=== PATIENT | female | born 1990 | race Caucasian/White ===

== ENCOUNTER → 2023-09-08 | Outpatient (CLI) | payer OTHER | END | disposition home or self-care (01) | LOC: LAB SHORT 17:31 → LAB 17:31 | DX: N39.0 Urinary tract infection, site not specified (principal) | CPT/HCPCS: 87086 ==

== ENCOUNTER → 2023-11-12 | Outpatient (CLI) | payer OTHER ==
[2023-11-12 14:43] LABS: Source, Urine Voided
[2023-11-12 15:03] LABS: BASOPHILS ABSOLUTE AUTO 0.06 K/mm3 (0.00-0.23); BASOPHILS PERCENT AUTO 1 % (0-2); EOSINOPHILS ABSOLUTE AUTO 0.14 K/mm3 (0.00-0.68); EOSINOPHILS PERCENT AUTO 2 % (0-6); Hematocrit 35.3 % (33.0-51.0); Hemoglobin 11.3 g/dL (11.5-16.0); IMMATURE GRAN ABSOLUTE AUTO 0.03 K/mm3 (0.00-0.10); IMMATURE GRAN PERCENT AUTO 0 % (0-1); LYMPHOCYTES ABSOLUTE AUTO 1.86 K/mm3 (0.84-5.20); LYMPHOCYTES PERCENT AUTO 20 % (21-46); MONOCYTES ABSOLUTE AUTO 0.62 K/mm3 (0.16-1.47); MONOCYTES PERCENT AUTO 7 % (4-13); Mean Corpuscular HGB 25.2 pg (26.0-34.0); Mean Corpuscular Volume 79 fL (80-100); Mean Platelet Volume 10.4 fL (9.1-12.4); NEUTROPHILS ABSOLUTE AUTO 6.48 K/mm3 (1.96-9.15); NEUTROPHILS PERCENT AUTO 71 % (41-73); Platelet Count 398 K/mm3 (150-400); RDW Coefficient Variation 15.4 % (11.7-14.2); RDW Standard Deviation 43.8 fL (35.1-46.3); Red Blood Cell Count 4.49 M/mm3 (3.80-5.20); White Blood Cell Count 9.19 K/mm3 (4.00-11.30)
[2023-11-12 15:13] LABS: Protein/Creat Ratio, Ur Random 0.1
[2023-11-12 15:22] LABS: Thyroid Stimulating Hormone 0.145 uIU/mL (0.360-4.800)
[2023-11-12 16:02] LABS: U Amphetamine Screen Not Detected; U Barbituate Screen Not Detected; U Benzodiazapine Screen Not Detected; U Buprenorphine Screen Not Detected; U Cannabinoids Screen Not Detected; U Cocaine Screen Not Detected; U Methadone Screen Not Detected; U Methamphetamine Screen Not Detected; U Opiates Screen Not Detected; U Oxycodone Screen Not Detected; U Phencyclidine Screen Not Detected
[2023-11-12 16:08] LABS: Amorphous Heavy (0-Heavy); Bacteria Few /hpf; Red Blood Cells, Urine 0-2 /hpf (0-2); Squamous Epithelial Cells Few /hpf (Few); White Blood Cells, Urine 0-2 /hpf (0-5)
[2023-11-13 10:01] LABS: A/G RATIO 1.1 (1.2-2.2); BILIRUBIN, TOTAL 0.4 mg/dL (0.0-1.2); CALCIUM, SERUM 9.4 mg/dL (8.7-10.2); CREATININE, SERUM 0.56 mg/dL (0.57-1.00); GLOBULIN, TOTAL 3.6 g/dL (1.5-4.5); PROTEIN, TOTAL, SERUM 7.7 g/dL (6.0-8.5)
[2023-11-14 11:13] LABS: HEPATITIS B SURFACE ANTIGEN Negative (Negative)
[2023-11-14 15:40] LABS: HIV 1,2 COMBO ANTIGEN/ANTIBODY Negative (Negative)
[2023-11-14 16:27] LABS: HEPATITIS C AB CIA INTERP Negative (Negative)
[2023-11-15 18:51] LABS: Triiodothyronine, Free 3.48 pg/mL (2.18-3.98)
== END ==
LOC: LAB SHORT 13:21 → LAB 13:21
PROVIDERS: Advanced Practice Midwife
DX: O09.91 Supervision of high risk pregnancy, unspecified, first trimester (principal)
CPT/HCPCS: 80053; 81015; 82570; 84156; 84439; 84443; 84481; 85025; 86592; 86762; 86803; 86850; 86900; 86901; 87086; 87340; 87389

== ENCOUNTER → 2024-03-02 | Outpatient (CLI) | payer OTHER ==
[2024-03-02 14:45] LABS: BASOPHILS ABSOLUTE AUTO 0.05 K/mm3 (0.00-0.23); BASOPHILS PERCENT AUTO 1 % (0-2); EOSINOPHILS ABSOLUTE AUTO 0.25 K/mm3 (0.00-0.68); EOSINOPHILS PERCENT AUTO 3 % (0-6); Hematocrit 35.9 % (33.0-51.0); Hemoglobin 11.4 g/dL (11.5-16.0); IMMATURE GRAN ABSOLUTE AUTO 0.03 K/mm3 (0.00-0.10); IMMATURE GRAN PERCENT AUTO 0 % (0-1); LYMPHOCYTES ABSOLUTE AUTO 1.43 K/mm3 (0.84-5.20); LYMPHOCYTES PERCENT AUTO 15 % (21-46); MONOCYTES ABSOLUTE AUTO 0.68 K/mm3 (0.16-1.47); MONOCYTES PERCENT AUTO 7 % (4-13); Mean Corpuscular HGB 27.5 pg (26.0-34.0); Mean Corpuscular HGB Conc 31.8 g/dL (31.5-36.5); Mean Corpuscular Volume 87 fL (80-100); Mean Platelet Volume 10.5 fL (9.1-12.4); NEUTROPHILS ABSOLUTE AUTO 7.23 K/mm3 (1.96-9.15); NEUTROPHILS PERCENT AUTO 75 % (41-73); Platelet Count 344 K/mm3 (150-400); RDW Coefficient Variation 18.5 % (11.7-14.2); RDW Standard Deviation 58.7 fL (35.1-46.3); Red Blood Cell Count 4.15 M/mm3 (3.80-5.20); White Blood Cell Count 9.67 K/mm3 (4.00-11.30)
== END ==
LOC: LAB SHORT 10:48 → LAB 10:48
PROVIDERS: Obstetrics & Gynecology
DX: O09.522 Supervision of elderly multigravida, second trimester (principal); Z3A.00 Weeks of gestation of pregnancy not specified
CPT/HCPCS: 82950; 85025

== ENCOUNTER 2024-04-14 17:43 | Emergency (ER) | payer OTHER ==
[~2024-04-14] VITALS: Ht 162.6 cm; Wt 93.0 kg
[2024-04-14 17:48] VITALS: BP 156/114
[2024-04-14] MEDS ORDERED: LABE200 PO (17:52)
[2024-04-14] MEDS ORDERED: ESCI20 PO (17:52)
[2024-04-14] MEDS ORDERED: FERROUS SULFAT325 M3 PO (17:52)
[2024-04-14] MEDS ORDERED: PROAIR RESPICL90 MCG IH (17:52)
[2024-04-14] MEDS ORDERED: ASPIR 8181 M1 PO (19:59)
== END 2024-04-14 18:15 | disposition other institution (70) ==
LOC: ER 17:43
DX: O9A.213 Injury, poisoning and certain other consequences of external causes complicating pregnancy, third trimester (principal); S30.1XXA Contusion of abdominal wall, initial encounter; V89.2XXA Person injured in unspecified motor-vehicle accident, traffic, initial encounter; Z3A.35 35 weeks gestation of pregnancy; Z79.899 Other long term (current) drug therapy
CPT/HCPCS: 99284

== ENCOUNTER 2024-04-14 18:25 | Observation (INO) | payer OTHER ==
[~2024-04-14] VITALS: Ht 162.6 cm; Wt 92.3 kg
[2024-04-14] VITALS (9 sets, daily range): BP systolic 129–149; BP diastolic 79–102
[~2024-04-14 18:25] MED LIST: ESCI20 PO; FERROUS SULFAT325 M3 PO; LABE200 PO; PROAIR RESPICL90 MCG IH
[2024-04-14] MEDS ORDERED: Rho(D) Immune Globulin 300 MCG / SYR IM ONE (18:35)
[2024-04-14 18:56] LABS: BASOPHILS ABSOLUTE AUTO 0.03 K/mm3 (0.00-0.23); BASOPHILS PERCENT AUTO 0 % (0-2); EOSINOPHILS PERCENT AUTO 1 % (0-6); Hematocrit 35.8 % (33.0-51.0); Hemoglobin 11.9 g/dL (11.5-16.0); IMMATURE GRAN ABSOLUTE AUTO 0.06 K/mm3 (0.00-0.10); IMMATURE GRAN PERCENT AUTO 1 % (0-1); LYMPHOCYTES ABSOLUTE AUTO 1.46 K/mm3 (0.84-5.20); LYMPHOCYTES PERCENT AUTO 15 % (21-46); MONOCYTES ABSOLUTE AUTO 0.67 K/mm3 (0.16-1.47); MONOCYTES PERCENT AUTO 7 % (4-13); Mean Corpuscular HGB 28.5 pg (26.0-34.0); Mean Corpuscular HGB Conc 33.2 g/dL (31.5-36.5); Mean Corpuscular Volume 86 fL (80-100); Mean Platelet Volume 10.5 fL (9.1-12.4); NEUTROPHILS ABSOLUTE AUTO 7.21 K/mm3 (1.96-9.15); NEUTROPHILS PERCENT AUTO 76 % (41-73); Platelet Count 281 K/mm3 (150-400); RDW Coefficient Variation 16.5 % (11.7-14.2); RDW Standard Deviation 52.8 fL (35.1-46.3); Red Blood Cell Count 4.17 M/mm3 (3.80-5.20); White Blood Cell Count 9.53 K/mm3 (4.00-11.30)
[2024-04-14 19:21] LABS: International Normalized Ratio 1.02; Prothrombin Time Results 10.9 Sec (9.7-11.5)
[2024-04-14] MEDS ORDERED: Lactated Ringer's 1,000 ML IV ONE (19:22)
[2024-04-14] MEDS ORDERED: Acetaminophen 500 MG Tab PO PRN (19:25)
[2024-04-14] MEDS ORDERED: Lactated Ringer's 1,000 ML IV SCH (19:30)
[2024-04-14] MEDS ORDERED: ASPIR 8181 M1 PO (19:59)
[2024-04-14] MEDS ORDERED: Labetalol HCL 100 MG TAB PO ONE (21:00)
[2024-04-14 23:36] LABS: BASOPHILS ABSOLUTE AUTO 0.04 K/mm3 (0.00-0.23); BASOPHILS PERCENT AUTO 0 % (0-2); EOSINOPHILS ABSOLUTE AUTO 0.09 K/mm3 (0.00-0.68); EOSINOPHILS PERCENT AUTO 1 % (0-6); Hematocrit 32.7 % (33.0-51.0); IMMATURE GRAN ABSOLUTE AUTO 0.06 K/mm3 (0.00-0.10); IMMATURE GRAN PERCENT AUTO 1 % (0-1); LYMPHOCYTES ABSOLUTE AUTO 1.17 K/mm3 (0.84-5.20); LYMPHOCYTES PERCENT AUTO 9 % (21-46); MONOCYTES ABSOLUTE AUTO 0.91 K/mm3 (0.16-1.47); MONOCYTES PERCENT AUTO 7 % (4-13); Mean Corpuscular HGB Conc 33.6 g/dL (31.5-36.5); Mean Corpuscular Volume 86 fL (80-100); Mean Platelet Volume 10.2 fL (9.1-12.4); NEUTROPHILS ABSOLUTE AUTO 10.99 K/mm3 (1.96-9.15); NEUTROPHILS PERCENT AUTO 83 % (41-73); Platelet Count 230 K/mm3 (150-400); RDW Coefficient Variation 16.5 % (11.7-14.2); RDW Standard Deviation 52.2 fL (35.1-46.3); Red Blood Cell Count 3.79 M/mm3 (3.80-5.20); White Blood Cell Count 13.26 K/mm3 (4.00-11.30)
[2024-04-15] VITALS (9 sets, daily range): BP systolic 124–145; BP diastolic 76–88
[2024-04-15] MEDS ORDERED: DiphenhydrAMINE HCL 25 MG Cap PO ONE (00:10)
[2024-04-15] MEDS ORDERED: DiphenhydrAMINE HCL 25 MG Cap PO PRN (00:10)
[2024-04-15 00:14] LABS: International Normalized Ratio 1.03
[2024-04-15 06:19] LABS: BASOPHILS ABSOLUTE AUTO 0.03 K/mm3 (0.00-0.23); BASOPHILS PERCENT AUTO 0 % (0-2); EOSINOPHILS PERCENT AUTO 1 % (0-6); Hematocrit 32.2 % (33.0-51.0); Hemoglobin 10.4 g/dL (11.5-16.0); IMMATURE GRAN ABSOLUTE AUTO 0.03 K/mm3 (0.00-0.10); IMMATURE GRAN PERCENT AUTO 0 % (0-1); LYMPHOCYTES ABSOLUTE AUTO 1.31 K/mm3 (0.84-5.20); LYMPHOCYTES PERCENT AUTO 13 % (21-46); MONOCYTES PERCENT AUTO 7 % (4-13); Mean Corpuscular HGB Conc 32.3 g/dL (31.5-36.5); Mean Corpuscular Volume 87 fL (80-100); Mean Platelet Volume 10.4 fL (9.1-12.4); NEUTROPHILS ABSOLUTE AUTO 7.68 K/mm3 (1.96-9.15); NEUTROPHILS PERCENT AUTO 78 % (41-73); Platelet Count 232 K/mm3 (150-400); RDW Coefficient Variation 16.6 % (11.7-14.2); RDW Standard Deviation 52.8 fL (35.1-46.3); Red Blood Cell Count 3.72 M/mm3 (3.80-5.20); White Blood Cell Count 9.85 K/mm3 (4.00-11.30)
[2024-04-15 06:37] LABS: International Normalized Ratio 1.03
--- NOTE | 2024-04-15 09:56 | NUR ---
IN TO SEE PT. PT TAKEN OFF MONITORS BY PROVIDER AND GIVEN D/C INSTRUCTIONS/PRECAUTIONS. ALREADY HAS NST's TWICE WEEKLY AT OFFICE SO WILL GO IN ON WEDNESDAY FOR THAT. PATIENT TO RETURN TO [facility] WITH ANY CONCERNS.
[2024-04-16 11:15] LABS: FETAL HGB - PERCENT FETAL RBCS 0.299 % (0.000-0.124)
== END 2024-04-15 10:44 | disposition home or self-care (01) ==
LOC: BC 18:25 → OBS 18:25 → BC 18:30 → OBS 19:12 → BC 19:14
PROVIDERS: ADMIT Obstetrics & Gynecology
DX: O9A.213 Injury, poisoning and certain other consequences of external causes complicating pregnancy, third trimester (principal); S30.1XXA Contusion of abdominal wall, initial encounter; O16.3 Unspecified maternal hypertension, third trimester; Z3A.34 34 weeks gestation of pregnancy; Z87.891 Personal history of nicotine dependence; V49.50XA Passenger injured in collision with unspecified motor vehicles in traffic accident, initial encounter
CPT/HCPCS: 36415; 76815; 85025; 85384; 85610; 85730; 86850; 86870; 86900; 86901; 96360; 96361; 96372; A9270; J2791; J7120

== ENCOUNTER 2024-04-24 19:23 | Emergency (ER) | payer OTHER ==
[~2024-04-24] VITALS: Ht 162.6 cm; Wt 93.0 kg
[~2024-04-24 19:23] MED LIST changes: +ASPIR 8181 M1 PO
[2024-04-24 20:05] VITALS: BP 161/117
[2024-04-24] MEDS ORDERED: Labetalol HCL 5 MG/ML 4ML Injection (Single Dose) IV ONE (20:15)
[2024-04-24 20:17] LABS: BASOPHILS ABSOLUTE AUTO 0.04 K/mm3 (0.00-0.23); BASOPHILS PERCENT AUTO 0 % (0-2); EOSINOPHILS ABSOLUTE AUTO 0.09 K/mm3 (0.00-0.68); EOSINOPHILS PERCENT AUTO 1 % (0-6); Hematocrit 35.7 % (33.0-51.0); Hemoglobin 11.8 g/dL (11.5-16.0); IMMATURE GRAN ABSOLUTE AUTO 0.06 K/mm3 (0.00-0.10); IMMATURE GRAN PERCENT AUTO 1 % (0-1); LYMPHOCYTES ABSOLUTE AUTO 1.72 K/mm3 (0.84-5.20); LYMPHOCYTES PERCENT AUTO 16 % (21-46); MONOCYTES PERCENT AUTO 6 % (4-13); Mean Corpuscular HGB 28.4 pg (26.0-34.0); Mean Corpuscular HGB Conc 33.1 g/dL (31.5-36.5); Mean Corpuscular Volume 86 fL (80-100); Mean Platelet Volume 11.1 fL (9.1-12.4); NEUTROPHILS ABSOLUTE AUTO 8.49 K/mm3 (1.96-9.15); NEUTROPHILS PERCENT AUTO 77 % (41-73); Platelet Count 249 K/mm3 (150-400); RDW Coefficient Variation 15.9 % (11.7-14.2); RDW Standard Deviation 49.7 fL (35.1-46.3); Red Blood Cell Count 4.16 M/mm3 (3.80-5.20)
[2024-04-24 20:51] LABS: Albumin, Blood 2.5 g/dL (3.4-5.0); Albumin/Globulin Ratio 0.5 (0.8-1.8); Bilirubin, Total 0.3 mg/dL (0.1-1.0); Bun/Creatinine Ratio 17.4 (12.0-20.0); Calcium, Blood 9.2 mg/dL (8.5-10.1); Creatinine, Blood 0.63 mg/dL (0.40-1.00); Globulin, Blood 4.7 g/dL (2.2-4.0); Potassium, Blood 3.8 mmol/L (3.5-5.5); Total Protein, Blood 7.2 g/dL (6.4-8.2)
== END 2024-04-24 20:39 | disposition home or self-care (01) ==
LOC: ER 19:23
PROVIDERS: Nurse Practitioner
DX: O10.013 Pre-existing essential hypertension complicating pregnancy, third trimester (principal); I16.0 Hypertensive urgency; O14.93 Unspecified pre-eclampsia, third trimester; Z3A.35 35 weeks gestation of pregnancy; Z91.013 Allergy to seafood; Z79.82 Long term (current) use of aspirin; Z79.899 Other long term (current) drug therapy
CPT/HCPCS: 51702; 59025; 80053; 82565; 82570; 83615; 84156; 84484; 85025; 85384; 85610; 85730; 93005; 93010; 96365; 96374; 96375; 96376; 99214; 99284-25; J3475; J7120

== ENCOUNTER 2024-07-01 12:16 | Observation (INO) | payer OTHER ==
[~2024-07-01] VITALS: Ht 162.6 cm; Wt 82.3 kg
[2024-07-01 16:34] LABS: BASOPHILS ABSOLUTE AUTO 0.07 K/mm3 (0.00-0.23); BASOPHILS PERCENT AUTO 0 % (0-2); EOSINOPHILS ABSOLUTE AUTO 0.11 K/mm3 (0.00-0.68); EOSINOPHILS PERCENT AUTO 1 % (0-6); Hemoglobin 10.1 g/dL (11.5-16.0); IMMATURE GRAN ABSOLUTE AUTO 0.08 K/mm3 (0.00-0.10); IMMATURE GRAN PERCENT AUTO 1 % (0-1); LYMPHOCYTES ABSOLUTE AUTO 1.51 K/mm3 (0.84-5.20); LYMPHOCYTES PERCENT AUTO 9 % (21-46); MONOCYTES ABSOLUTE AUTO 0.83 K/mm3 (0.16-1.47); MONOCYTES PERCENT AUTO 5 % (4-13); Mean Corpuscular HGB 28.5 pg (26.0-34.0); Mean Corpuscular HGB Conc 32.6 g/dL (31.5-36.5); Mean Corpuscular Volume 87 fL (80-100); NEUTROPHILS PERCENT AUTO 85 % (41-73); Platelet Count 477 K/mm3 (150-400); RDW Coefficient Variation 13.2 % (11.7-14.2); Red Blood Cell Count 3.55 M/mm3 (3.80-5.20)
[2024-07-01 17:00] LABS: Albumin, Blood 3.5 g/dL (3.4-5.0); Albumin/Globulin Ratio 0.7 (0.8-1.8); Bilirubin, Total 0.6 mg/dL (0.1-1.0); Calcium, Blood 9.1 mg/dL (8.5-10.1); Creatinine, Blood 0.6 mg/dL (0.40-1.00); Globulin, Blood 4.7 g/dL (2.2-4.0); Potassium, Blood 3.8 mmol/L (3.5-5.5); Total Protein, Blood 8.2 g/dL (6.4-8.2)
[2024-07-01] MEDS ORDERED: Ketorolac Tromethamine 30mg Vial IV ONE (17:00)
[2024-07-01] MEDS ORDERED: LORazepam 2 MG/ML 1ML Injection IV ONE (17:00)
[2024-07-01] MEDS ORDERED: FentaNYL Citrate 50 MCG/ML 2 ML Injection IV PRN (17:05)
[2024-07-01] MEDS ORDERED: HYDROcodone 5-APAP 325 TAB PO PRN (17:10)
[2024-07-01] MEDS ORDERED: Ondansetron 4 MG TAB PO PRN (17:10)
[2024-07-01] MEDS ORDERED: Ondansetron HCl 2 MG / ML 2ML Vial IV PRN (17:10)
[2024-07-01] MEDS ORDERED: Lactated Ringer's 1,000 ML IV SCH (17:10)
[2024-07-01] MEDS ORDERED: Vancomycin HCL 1,250 MG in NS 250 ML IV ONE (17:40)
[2024-07-01] MEDS ORDERED: Piperacillin/Tazobactam Sod 3.375 GM in NS 100 ML IV SCH (18:00)
--- NOTE | 2024-07-01 18:09 | NUR ---
BREAST FEEDING VERIFIED WITH PHARAMCY THAT VANCOMYCIN SAFE FOR TO CONTINUE BREAST FEEDING. CARE ONGOING.
[2024-07-01 18:11] VITALS: BP 136/94
[2024-07-01 19:11] VITALS: BP 120/85
[2024-07-01] MEDS ORDERED: NS 250 ML IV PRN (23:20)
[2024-07-02] VITALS (11 sets, daily range): BP systolic 99–131; BP diastolic 48–86
[2024-07-02] MEDS ORDERED: Vancomycin HCL 1,000 MG in NS 250 ML IV SCH (02:00)
--- NOTE | 2024-07-02 02:51 | NUR ---
SHIFT SUMMARY PT IS NPO D/T SCHEDULED I&D THIS MORNING. LR INFUSING ORDERED. VANCO INFUSED ORDERED, ABX INFUSED ORDERED. TEMP 99.6 ORAL. NORCO 5/325MG ADMINISTERED FOR RIGHT AXILLAR PAIN 04/10 PER PT REPORT WITH MILD EFFECTIVNESS 03/10. RETAKE TEMP 100.3. PT FEEDING HER SON T/O THE NIGHT. NO ACUTE EVENTS DURING THIS SHIFT. PT IS ABLE TO MAKE HER NEEDS KNOWN AND IS INDEPENDENT IN THE ROOM. FATHER OF THE SON BY THE BEDSIDE DURING HS. BED AT THE LOWEST POSITION, CALL LIGHT WITHIN REACH.
--- NOTE | 2024-07-02 05:29 | NUR ---
PT'S TEMP THIS AM 99.6 ORAL. AT NIGHT 100.3. MEDICATED X2 WITH HYDROCODONE 5/325MG FOR C/O PAIN RIGHT AXILLA 05/10 PER PT REPORT. PT REPORTS MILD EFFECTIVNESS 5-04/10.
--- NOTE | 2024-07-02 09:50 | NUR ---
OR NURSE TO PT ROOM TO TRANSPORT TO OR. CURRENTLY ; WILL COME BACK IN TEN MINUTES.
[2024-07-02] MEDS ORDERED: Bupivacaine 0.5% HCl 5 MG/ML 30MLVIAL ONE (10:03)
--- NOTE | 2024-07-02 10:12 | NUR ---
PATIENT TO PRE-OP WITH OR NURSES.
--- NOTE | 2024-07-02 10:13 | NUR ---
AURELIO SENT TO PRE-OP WITH 1000 ACACIAO.
[2024-07-02] MEDS ORDERED: FentaNYL Citrate 50 MCG/ML 2 ML Injection ONE ×2 (10:25→11:54)
[2024-07-02] MEDS ORDERED: Midazolam HCl 1MG / ML 2ML Vial ONE (10:26)
[2024-07-02] MEDS ORDERED: propofoL 60 ML IV ONE (10:26)
[2024-07-02] MEDS ORDERED: Esmolol HCL 10 MG/ML 10ML VIAL ONE (10:49)
[2024-07-02] MEDS ORDERED: Dexamethasone Sod Phos 10 MG/ML 1ML VIAL ONE (11:00)
[2024-07-02] MEDS ORDERED: Ondansetron HCl 2 MG / ML 2ML Vial ONE ×2 (11:00→11:54)
[2024-07-02] MEDS ORDERED: Ketorolac Tromethamine 30mg Vial ONE (11:00)
--- NOTE | 2024-07-02 12:06 | NUR ---
REPORT RECEIVED FROM PACU: BANDAGE: 4x4 GAUZE WITH MEDIPORE COVERING. RECEIVED 500mL FLUIDS IN OR AND 300mL IN PACU. TORADOL IN OR @ 1130 IN ADDITION TO DECADRON AND VANCY. SLIGHTLY HYPOTENSIVE, NO WNL. BLOOD LOSS <20. WILL BE RETURNING TO MEDICAL FLOOR SHORTLY. REPORT GIVEN TO FAMILY.
--- NOTE | 2024-07-02 12:23 | NUR ---
PATIENT RETURNED TO MEDICAL FLOOR AT 1220 VIA GURNEY. PIVOT-TRANSFERRED TO ROOM BED. C/O PAIN 04/10 BUT IMPROVING AFTER "SETTLING DOWN". SKIN C/D/I. PINROSE DRAIN IN PLACE; PATENT. NO C/O NAUSEA. V/S OBTAINED AND LUNCH TRAY PROVIDED.
--- NOTE | 2024-07-02 14:43 | NUR ---
DISCHARGE/SHIFT SUMMARY: A&Ox4. PLEASANT AND COOPERATIVE WITH CARE. CALLS APPROPRIATELY AND IS ABLE TO ADVOCATE NEEDS EFFECTIVELY. INDEPENDENT WITH AMBULATION AND ADLs. TO OR @ 1000 WITH VANCO. I/D PERFORMED AND PINROSE DRAIN PLACED. IV REMOVED BY ANAHI KEENE CNA. FOLLOW-UP WITH OB. WOUND CARE ORERS PROVIDED. PATIENT ESCORTED FROM FLOOR BY FOOT WITH ALL BELONGINGS AND DISCHARGE PACKET @ [id number]. TRANSPORTATION PROVIDED BY /POV.
[2024-07-02] MEDS ORDERED: Amoxicillin/Clavulanate K 875 MG Tab PO SCH (18:00)
== END 2024-07-02 14:05 | disposition home or self-care (01) ==
LOC: ER 12:16 → MEDS 12:17 → SURS 12:17 → MEDS 18:08
PROVIDERS: Physician Assistant; ADMIT Surgery
DX: L02.411 Cutaneous abscess of right axilla (principal); I10 Essential (primary) hypertension; J45.909 Unspecified asthma, uncomplicated; Z79.82 Long term (current) use of aspirin; Z79.899 Other long term (current) drug therapy
CPT/HCPCS: 71260; 80053; 85025; 87070; 87075; 87077; 87147; 87186; 87205; 96365-59; 96366; 96367; 96375-59; 99285-25; A9270; G0378; J1100; J1885; J2060; J2250; J2405; J2543; J2704; J3010; J3370; J7050; J7120; Q9967

== ENCOUNTER 2025-01-23 18:15 | Emergency (ER) | payer OTHER ==
[~2025-01-23] VITALS: Ht 162.6 cm; Wt 78.9 kg
[2025-01-23 18:51] VITALS: BP 153/98
[2025-01-23] MEDS ORDERED: Triamcinolone Inj Susp 40 MG / ML 1ML Vial IM ONE (19:15)
[2025-01-23] MEDS ORDERED: TRIDERM28.4 GM TOP (19:24)
== END 2025-01-23 19:27 | disposition home or self-care (01) ==
LOC: ER 18:15
DX: L25.5 Unspecified contact dermatitis due to plants, except food (principal); Z91.013 Allergy to seafood; Z59.89 Other problems related to housing and economic circumstances
CPT/HCPCS: 96372; 99282-25; J3301

== ENCOUNTER 2025-10-01 20:22 | Emergency (ER) | payer OTHER ==
[~2025-10-01] VITALS: Ht 162.6 cm; Wt 74.8 kg
[~2025-10-01 20:22] MED LIST changes: +TRIDERM28.4 GM TOP
[2025-10-01 20:25] VITALS: BP 148/120
[2025-10-01] MEDS ORDERED: Ketorolac Tromethamine 15mg Vial IV ONE (22:15)
[2025-10-01 22:49] LABS: BASOPHILS ABSOLUTE AUTO 0.07 K/mm3 (0.00-0.23); BASOPHILS PERCENT AUTO 1 % (0-2); EOSINOPHILS ABSOLUTE AUTO 0.14 K/mm3 (0.00-0.68); EOSINOPHILS PERCENT AUTO 2 % (0-6); Hematocrit 35.7 % (33.0-51.0); Hemoglobin 11.9 g/dL (11.5-16.0); IMMATURE GRAN ABSOLUTE AUTO 0.01 K/mm3 (0.00-0.10); IMMATURE GRAN PERCENT AUTO 0 % (0-1); LYMPHOCYTES ABSOLUTE AUTO 2.37 K/mm3 (0.84-5.20); LYMPHOCYTES PERCENT AUTO 38 % (21-46); MONOCYTES ABSOLUTE AUTO 0.57 K/mm3 (0.16-1.47); MONOCYTES PERCENT AUTO 9 % (4-13); Mean Corpuscular HGB Conc 33.3 g/dL (31.5-36.5); Mean Corpuscular Volume 88 fL (80-100); NEUTROPHILS ABSOLUTE AUTO 3.05 K/mm3 (1.96-9.15); NEUTROPHILS PERCENT AUTO 49 % (41-73); NRBC ABSOLUTE 0.00 K/mm3 (0.00-0.02); NRBC Auto 0.0 /100 WBC (0.0-0.2); Platelet Count 359 K/mm3 (150-400); RDW Coefficient Variation 13.2 % (11.7-14.2); RDW Standard Deviation 42.8 fL (35.1-46.3)
[2025-10-01 23:11] LABS: Alanine Aminotransfer (ALT/SGP 55.0 U/L (12-78); Albumin, Blood 4.3 g/dL (3.4-5.0); Albumin/Globulin Ratio 1.1 (0.8-1.8); Anion Gap 7.0 mmol/L (3-11); Aspartate Aminotrans (AST/SGOT 22.0 U/L (12-37); Bilirubin, Total 0.7 mg/dL (0.1-1.0); Blood Urea Nitrogen 13.0 mg/dL (8-24); CO2, Blood 25.0 mmol/L (21-32); Calcium, Blood 9.1 mg/dL (8.5-10.1); Chloride, Blood 107.0 mmol/L (98-108); Creatinine, Blood 0.58 mg/dL (0.40-1.00); Globulin, Blood 4.0 g/dL (2.2-4.0); Glucose, Blood 84.0 mg/dL (70-99); Potassium, Blood 3.7 mmol/L (3.5-5.5); Sodium, Blood 135.0 mmol/L (136-145); Total Protein, Blood 8.3 g/dL (6.4-8.2)
[2025-10-02] MEDS ORDERED: AMOCLA875 PO (00:43)
== END 2025-10-02 01:01 | disposition home or self-care (01) ==
LOC: ER 20:22
PROVIDERS: Student in an Organized Health Care Education/Training Program
DX: L03.211 Cellulitis of face (principal); K08.89 Other specified disorders of teeth and supporting structures; Z91.013 Allergy to seafood; Z79.2 Long term (current) use of antibiotics
CPT/HCPCS: 70491; 80053; 85025; 96374-59; 99283-25; A9270; J1885; Q9967